=== PATIENT | male | born 1965 | race Caucasian/White ===

== ENCOUNTER 2019-01-24 14:08 | Emergency (ER) | payer BC ==
[~2019-01-24] VITALS: Ht 185.4 cm; Wt 97.7 kg
[~2019-01-24 14:08] MED LIST: HYDR-4011 PO; IBUP-1542 PO
[2019-01-24 14:18] VITALS: BP 156/88; PULSE 71; RESP 18; Ht 185.4 cm; Wt 97.7 kg
[2019-01-24] MEDS ORDERED: traMADol 50 MG TAB PO ONE (15:00)
== END 2019-01-24 16:31 | disposition home or self-care (01) ==
LOC: FTE 14:08
DX: M25.512 Pain in left shoulder (principal)
CPT/HCPCS: 73030